=== PATIENT | male | born 1950 | race Two or more races ===

== ENCOUNTER 2020-03-03 01:18 | Emergency (ER) | payer MEDICARE ==
[~2020-03-03] VITALS: Ht 172.7 cm; Wt 82.6 kg
--- OUTSIDE RECORDS SUMMARY | 2020-03-03 01:21 | XMS REPORT ---
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 s Mild nonproliferative diabetic retinopathy of both eyes Disease Active 2015-05-21 00:00:00 [facility] 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 Disease Active 2015-05-21 00:00:00 [facility] Iron deficiency anemia- pt postponed colonoscopy - fea r of cancer Iron deficiency anemia- pt postponed colonoscopy - fear of cancer Disease Active 2014-11-29 00:00:00 [facility] Anemia, unspecified Anemia, unspecified Disease Active 2014-11-21 00:00 :00 [facility] Tooth decay Tooth decay Disease Active 2012-10-27 00:00:00 [facility] Periodontitis Periodontitis Disease Active 2012-10-27 00:00:00 [facility] Diabetes mellitus Diabetes mellitus Disease Active 2011-05-12 00:00:00 [facility] Hypertension Hypertension Disease Active 2010-11-17 00:00:00 [facility] Hyperlipidemia Hyperlipidemia Disease Active 2010-09-01 00:00:00 [facility] Atrial fibrillation Atrial fibrillation Disease Active 2007-05-04 00:00 :00 [facility] VITAMIN D DEFICIENCY 02/06 VITAMIN D DEFICIENCY 02/06 Disease Ac tive 2007-02-14 00:00:00 [facility] Chronic Low Back Pain Chronic Low Back Pain Disease Active 200 04-05-24 00:00:00 [facility] GERD GERD Disease Active 2006-07-01 00:00:00 [facility] Obesity Obesity Disease Active [facility] Pacemaker Pacemaker Disease Active [facility] CAD (coronary artery disease) CAD (coronary artery disease) Disease Active Overview: S/P PACEMAKER , [place] TH 2001; stress uwzo=7550; ECHO=01/08-EF= 60-64%; PACEMAKER=08/16/07, 02/14/08-RTC 6 mos [facility] Osteoarthritis Osteoarthritis Disease Active [facility] Erectile dysfunction Erectile dysfunction Disease Active [facility] Heart block Heart block Disease Active [facility] Allergies, Adverse Reactions, Alerts Allergy Name Allergy Type Status Severity Reaction(s) Onset Date Inacti ve Date Treating Clinician Comments Source ALMONDS DA Active U 2002-07-08 00:00:00 [facility] No Known Contrast Allergies DA Active U 2002-07-08 00:00: 00 [facility] No Known Drug Allergies DA Active U 2002-07-08 00:00:00 [facility] PEACHES DA Active U 2002-07-08 00:00:00 [facility] Family History Family Member Diagnosis Comments Start Date Stop Date Source Natural brother Arthritis [facility] Natural brother Diabetes [facility] Natural mother Diabetes [facility] Natural mother Heart [facility] Social History Social Habit Start Date Stop Date Quantity Comments Source Sex Assigned At [facility] Alcohol intake 2016-07-27 00:00:00 2016-07-27 00:00:00 [facility] Smoking Status Start Date Stop Date Source Never smoker [facility] Medications Ordered Medication Name Filled Medication Name Start Date Stop Da te Current Medication? Ordering Clinician Indication Dosage Frequency Signature (SIG) Comments Components Source metoprolol tartrate (LOPRESSOR) 50 mg tablet 2017-09-10 00:0 0:00 Yes Essential hypertension TAKE 1 & 1/2 TABL ET BY MOUTH 2 TIMES DAILY PLEASE SEE PCP FOR FURTHER REFILLS. [facility] tamsulosin (FLOMAX) 0.4 mg extended release capsule 04-13 00:00:00 Yes Benign prostatic hyperplasia, presence o f lower urinary tract symptoms unspecified TAKE 2 CAPSULES BY MOUTH DAILY FOR PROSTATE. [facility] omeprazole (PRILOSEC) 20 mg delayed release capsule 03-07 00:00:00 Yes Gastroesophageal reflux disease without esophagitis TAKE ONE CAPSULE BY MOUTH EVERY DAY [facility] XARELTO 20 mg tablet 2016-12-07 00:00:00 Yes Atrial fibrillation, unspecified type TAKE 1 TABLET BY TABBY TH EVERYDAY (WITH DINNER),INS ALLOWS 30 DAY SUPPLY [facility] finasteride (PROSCAR) 5 mg tablet 2016-12-07 00:00:00 Yes Benign prostatic hyperplasia, presence of lower urinary tract symptoms unspecified, unspecified morphology 5mg QD Take 1 tablet by tabby th daily Please see PCP for further refills. [facility] pravastatin (PRAVACHOL) 20 mg tablet 2016-12-07 00:00:00 Yes Hyperlipidemia, unspecified hyperlipidemia type 20mg Take 1 tablet by mouth at bedtime nightly Please see PCP for further refills. [facility] metFORMIN (GLUCOPHAGE) 500 mg tablet 2016-12-07 00:00:00 Yes Type 2 diabetes mellitus without complication, unspecified [facility] insulin use status 1000mg QD Take 2 tablets by mo uth daily (with breakfast) Please see PCP for further refills. [facility] fenofibrate nanocrystallized (TRICOR) 48 mg tablet 2016-09 00:00:00 Yes Other hyperlipidemia 48mg QD Take 1 tabl et by mouth daily Please see PCP for further refills. [facility] oxybutynin (DITROPAN) 5 mg tablet 2016-07-27 00:00:00 Yes Postinfective stricture of bulbous urethra 5mg Q.5D Take 1 tablet by mouth 2 time s daily. [facility] lancets 2016-07-22 00:00:00 Yes Type 2 diabetes mellitus without complication, unspecified director long term care insulin use status by MISCELLANEOUS route 3 times daily USE TO CHECK BLOOD SUGARS. [facility] blood glucose (TRUE METRIX GLUCOSE TEST STRIP) test strips 2016-06-10 00:00:00 Yes Type 2 diabetes mellitus without complication, unspecified director long term care insulin use status 3 times daily to test blood sugar. [facility] MULTIVITAMIN OR 2016-06-09 14:32:38 Yes Take by mouth. [facility] blood glucose meter (TRUE METRIX GLUCOSE METER) 2016-06-09 0 0:00:00 Yes Type 2 diabetes mellitus without complication, unspecified m[facility] insulin use status Use as directed.. [facility] acetaminophen-codeine (TYLENOL/CODEINE #3) 300-30 mg per tab let 2016-06-09 00:00:00 Yes Postinfective stricture of bulbous ureth ra 1{tbl} Take 1 tablet by mouth every 4 hours as needed for Pain. [facility] insulin glargine (LANTUS) 100 unit/mL injection 2016-03-11 0 0:00:00 Yes Type 2 diabetes mellitus without complication 55U QD Inject 55 Units under the skin daily. [facility] methocarbamol (ROBAXIN-750) 750 mg tablet 2016-03-11 00:00:0 0 Yes Chronic midline low back pain without sciatica 750mg T abdifatah 1 tablet by mouth 3 times daily as needed for Pain. [facility] blood glucose (TRUETEST TEST STRIPS) test strips 2015-12-26 00:00:00 Yes Type 2 diabetes mellitus without complication Q.5D 2 times daily to test blood sugar. [facility] blood glucose meter 2015-12-26 00:00:00 Yes Type 2 diabetes mellitus without complication True test Glucomete r. Use as directed twice daily to check blood sugar. [facility] INSULIN SYRINGE 1mL 30GX5/16" syringe-needle 2015-11-27 00:0 0:00 Yes Type 2 diabetes mellitus without complication Use to inject medication Use for insulin daily. Use a new syringe each time. [facility] polyethylene glycol (GOLYTELY) 236-22.74-6.74 -5.86 gram ora l solution 2015-04-22 00:00:00 Yes Iron deficiency anemia Add lukewarm drinking water to the fill satnam (4 liters) and shake. Drink as directed by your doctor.. [facility] fluocinonide (LIDEX) 0.05 % external solution 2014-12-09 00: 00:00 Yes Dry scalp Q.5D Apply to affected area 2 times daily. [facility] ketoconazole (NIZORAL) 2 % shampoo 2014-12-09 00:00:00 Yes Dry scalp Apply on scalp leave for 5-10 min and rinse. Use three times a week.. [facility] ferrous sulfate (IRON, FERROUS SULFATE,) 325 mg (65 mg iron) tablet 2014-06-18 00:00:00 Yes Iron deficiency anemia, unspecified 325m g QD Take 1 tablet by mouth daily (with breakfast). [facility] Immunizations Ordered Immunization Name Filled Immunization Name Date Status Comments Source Tropicamide 0.5% Eye-Shari 15ml 2015-07-24 00:00:00 Complete d [facility] Influenza Vaccine 2015-07-10 00:00:00 Completed [facility] Influenza Vaccine 2013-08-14 00:00:00 Completed [facility] Tdap Tetanus, diphtheria, acellular pertussis Vaccine 2013-03-29 00:00:00 Completed [facility] Influenza Vaccine 2012-07-03 00:00:00 Completed [facility] Influenza Vaccine 2011-09-29 00:00:00 Completed [facility] Influenza Vaccine 2010-07-20 00:00:00 Completed [facility] Influenza Vaccine 2009-07-09 00:00:00 Completed [facility] Influenza Vaccine 2008-09-18 00:00:00 Completed [facility] PPV 23 Pneumococcal Polysaccaride 2004-10-09 00:00:00 Comp leted [facility] Procedures This patient has no known procedures. Plan of Care Planned Activity Planned Date Details Comments Source [facility] Scheduled Test 2017-05-19 00:00:00 CORONARY ARTERY DI SEASE AGE 18 AND UP [code = CORONARY ARTERY DISEASE AGE 18 AND UP] [facility] Scheduled Test 2017-05-19 00:00:00 DM HGBA1C (Yearly) [code = DM HGBA1C (Yearly)] [facility] Scheduled Test 2017-01-02 00:00:00 DM Retinal Exam (Y early) [code = DM Retinal Exam (Yearly)] [facility] Scheduled Test 2016 00:00:00 IMM Pneumococcal A ge 65 and Up [code = IMM Pneumococcal Age 65 and Up] [facility] Scheduled Test 2016-07-24 00:00:00 DM Microalbumin Ur ine Scrn (Yearly) [code = DM Microalbumin Urine Scrn (Yearly)] [facility] Scheduled Test 2016-04-15 00:00:00 DM Foot Exam (Year ly) [code = DM Foot Exam (Yearly)] [facility] Scheduled Test 2006-12-14 00:00:00 Colorectal Cancer Scrn Annual (FIT/FOBT) Age 50 to 75 [code = Colorectal Cancer Scrn Annual (FIT/FOBT) Age 50 to 75] [facility] Results Test Description Test Time Test Comments Results Result Comments Source - US ABDOMEN COMPLETE 2019-09-28 09:01:00 Name : KOBI MURPHY [facility] : 1950 Age/S: 69 / M [address] [facility] Unit #: [id number] Loc: ROSALIO Prakash [address] Phys: Elio Rai MD Acct: [id number] Dis Date: Status: REG CLI PHONE #: [phone] Exam Date: 09/28/2019 0840 FAX #: [phone] Reason: 787.3,R14.0,V65.3,E66.3 EXAMS: CPT CODE: [id number] US ABDOMEN COMPLETE 24453 REASON FOR EXAM: 787.3,R14.0,V65.3,E66.3 EXAM ORDER DATE: 09/28/2019 7:57 AM Attending M.D.: Elio Rai MD PROCEDURE: - US ABDOMEN COMPLETE Technique: Grayscale and color Doppler images of the abdomen. Comparison study: No relevant priors FINDINGS: Aorta and IVC: Patent and grossly normal in caliber. Liver: Size: 15.0 cm craniocaudally Parenchyma and contour: Smooth contour. Normal echogenicity. Cysts and/or masses: None. Intrahepatic bile ducts: No intrahepatic biliary ductal dilation Common bile duct: 2.3 mm in diameter. No echogenic filling defects in visualized duct. Gallbladder: Stones/sludge: No intraluminal stones or sludge. Wall: 2.6 mm in thickness. No discontinuity. No polyps. No pericholecystic fluid. No hyperemia. Sonographic Riggins's sign: Negative Portal vein: Portal vein caliber is within normal limits. Portal vein is patent with hepatopetal flow. Pancreas: Incompletely visualized. However the visualized portions are grossly within normal limits. Right kidney: parenchyma echogenicity: Normal echogenicity size: 12.1 x 5.4 x 5.3 cm stones: none cysts/masses: none hydronephrosis: none PAGE 1 Signed Report (CONTINUED) Name: KOBI MURPHY [facility] : 1950 Age/S: 69 / M [address] [facility] Unit #: [id number] Loc: ROSALIO Prakash [address] Phys: Elio Rai MD Acct: [id number] Dis Date: Status: REG CLI PHONE #: [phone] Exam Date: 0840 FAX #: [phone] Reason: 787.3,R14.0,V65.3,E66.3 EXAMS: CPT CODE: [id number] US ABDOMEN COMPLETE [id number] <Continued> Left kidney: parenchyma echogenicity: Normal echogenicity size: 11.7 x 6.2 x 5.6 cm stones: none cysts/masses: none hydronephrosis: none Spleen: size: 12.5 x 4.3 x 5.1 cm cysts/masses: Parenchyma is sonographically unremarkable. Ascites/pleural effusions: None IMPRESSION: Sonographically unremarkable abdomen. Location: [facility] at 0901 Reported and signed by: Dex Ortega MD CC: Elio Rai MD; Alex Morales Technologist: PATRICK RITTER RT(R),JAKI Trnscb Date/Time: 09/28/2019 (900) [email or web address] Orig Print D/T: S: 09/28/2019 (0904) Probe: PAGE 2 Signed Report
--- OUTSIDE RECORDS SUMMARY | 2020-03-03 01:21 | XMS REPORT | Clinical Summary ---
Author Author [facility] Organization [facility] ict Address Unknown Phone Unavailable Care Team Providers Care Trauma Registrar Name Role Phone PCP Unavailable Allergies Comments Active Allergy Reactions Severity Noted Date No Known Drug Allergies 03/21/2014 Medications End Date Status Medication Sig Dispensed Refills Start Date Active ferrous sulfate (IRON, Take 1 tablet 100 tablet 0 0 FERROUS SULFATE,) 325 mg by mouth 4 (65 mg iron) daily (with tabletIndications: Iron breakfast). deficiency anemia, unspecified Active fluocinonide (LIDEX) 0.05 Apply to 60 mL 3 % external affected area 5 solutionIndications: Dry 2 times scalp daily. Active ketoconazole (NIZORAL) 2 Apply on 120 mL 5 0 % shampooIndications: Dry scalp leave 5 scalp for 5-10 min and rinse. Use three times a week.. Active polyethylene glycol Add lukewarm 4000 mL 0 04/22 (GOLYTELY) 236-22.74-6.74 drinking 5 -5.86 gram oral water to the solutionIndications: Iron fill satnam (4 deficiency anemia liters) and shake. Drink as directed by your doctor.. Active MULTIVITAMIN OR Take by 0 mouth. Active INSULIN SYRINGE 1mL Use to inject 30 Each 11/04 30GX5/16" medication 6 syringe-needleIndications Use for : Type 2 diabetes insulin mellitus without daily. Use a complication new syringe each time. Active blood glucose (TRUETEST 2 times daily 100 Each TEST STRIPS) test to test blood 6 stripsIndications: Type 2 sugar. diabetes mellitus without complication Active blood glucose True test 1 Kit 0 meterIndications: Type 2 Glucometer. 6 diabetes mellitus without Use as complication directed twice daily to check blood sugar. Active insulin glargine (LANTUS) Inject 55 50 mL 1 100 unit/mL Units under 6 injectionIndications: the skin Type 2 diabetes mellitus daily. without complication Active methocarbamol Take 1 tablet 60 tablet 1 (ROBAXIN-750) 750 mg by mouth 3 6 tabletIndications: times daily Chronic midline low back as needed for pain without sciatica Pain. Active blood glucose meter (TRUE Use as 1 Kit 0 METRIX GLUCOSE directed.. 6 METER)Indications: Type 2 diabetes mellitus without complication, unspecified casework supervisor insulin use status Active acetaminophen-codeine Take 1 tablet 30 tablet 0 (TYLENOL/CODEINE #3) by mouth 6 300-30 mg per every 4 hours tabletIndications: as needed for Postinfective stricture Pain. of bulbous urethra Active blood glucose (TRUE 3 times daily 100 Each 3 METRIX GLUCOSE TEST to test blood 6 STRIP) test sugar. stripsIndications: Type 2 diabetes mellitus without complication, unspecified skilled nursing insulin use status Active lancetsIndications: Type by 100 Each 5 1 2 diabetes mellitus MISCELLANEOUS 6 without complication, route 3 times unspecified casework supervisor daily USE TO insulin use status CHECK BLOOD SUGARS. Active oxybutynin (DITROPAN) 5 Take 1 tablet 60 tablet 6 mg tabletIndications: by mouth 2 6 Postinfective stricture times daily. of bulbous urethra Active fenofibrate Take 1 tablet 30 tablet 0 nanocrystallized (TRICOR) by mouth 6 48 mg tabletIndications: daily Please Other hyperlipidemia see PCP for further refills. Active XARELTO 20 mg TAKE 1 TABLET 30 tablet 2 tabletIndications: Atrial BY MOUTH 7 fibrillation, unspecified EVERYDAY type (WITH DINNER),INS ALLOWS 30 DAY SUPPLY Active finasteride (PROSCAR) 5 Take 1 tablet 30 tablet 0 mg tabletIndications: by mouth 7 Benign prostatic daily Please hyperplasia, presence of see PCP for lower urinary tract further symptoms unspecified, refills. unspecified morphology Active pravastatin (PRAVACHOL) Take 1 tablet 30 tablet 0 20 mg tabletIndications: by mouth at 7 Hyperlipidemia, bedtime unspecified nightly hyperlipidemia type Please see PCP for further refills. Active metFORMIN (GLUCOPHAGE) Take 2 120 tablet 0 500 mg tabletIndications: tablets by 7 Type 2 diabetes mellitus mouth daily without complication, (with unspecified skilled nursing breakfast) insulin use status Please see PCP for further refills. Active omeprazole (PRILOSEC) 20 TAKE ONE 90 capsule 1 0 mg delayed release CAPSULE BY 7 capsuleIndications: MOUTH EVERY Gastroesophageal reflux DAY disease without esophagitis Active tamsulosin (FLOMAX) 0.4 TAKE 2 60 capsule 3 mg extended release CAPSULES BY 7 capsuleIndications: MOUTH DAILY Benign prostatic FOR PROSTATE. hyperplasia, presence of lower urinary tract symptoms unspecified Active metoprolol tartrate TAKE 1 & 1/2 90 tablet 0 09/10 (LOPRESSOR) 50 mg TABLET BY 7 tabletIndications: MOUTH 2 TIMES Essential hypertension DAILY PLEASE SEE PCP FOR FURTHER REFILLS. Active Problems Problem Noted Date Mild nonproliferative diabetic retinopathy of both ey es 05/21/2015 Other and combined forms of senile cataract 05/21/20 15 Iron deficiency anemia- pt postponed colonoscopy - fe ar of cancer 11/29/2014 Anemia, unspecified 11/21/2014 Tooth decay 10/27/2012 Periodontitis 10/27/2012 Diabetes mellitus 05/12/2011 Hypertension 11/17/2010 Hyperlipidemia 09/01/2010 Atrial fibrillation 05/04/2007 VITAMIN D DEFICIENCY 02/0602/14/2007 Chronic Low Back Pain 01/24/2007 GERD 07/01/2006 Obesity Pacemaker CAD (coronary artery disease) Overview: S/P PACEMAKER , CATH 2001; stress test= 2001; ECHO=01/08-EF= 60-64%; PACEMAKER=08/16/07, 02/14/08-RTC 6 mos Osteoarthritis Erectile dysfunction Heart block Immunizations Name Administration Dates Next Due Influenza Vaccine 07/10/2015, 08/14/2013, 10/2011, 09/29/2011, 07/20/2010, 07/09/2009, 09/18/2008 PPV 23 Pneumococcal 10/09/2004 Polysaccaride Tdap Tetanus, diphtheria, 03/29/2013 acellular pertussis Vaccine Tropicamide 0.5% Eye-Shari 07/24/2015 15ml Family History Medical History Relation Name Comments Arthritis Brother Diabetes Brother Diabetes Mother Heart Mother Relation Name Status Comments Brother Father stroke , diabetes c omplications (Age 50) Mother Alive Social History Date Tobacco Use Types Packs/Day Years Used Never Smoker Smokeless Tobacco: Never Used Tobacco Cessation: Counseling Given: No Drinks/Week oz/Week Comments Alcohol Use 0 Standard drinks or equivalent 0.0 No Sex Assigned at Date Recorded Not on file Industry Job Start Date Occupation Not on file Not on file Not on file Travel End Travel History Travel Start No recent travel history available. Last Filed Vital Signs Not on file Plan of Treatment Health Maintenance Due Date Last Done Comments Colorectal Cancer Scrn 12/14/2006 12/14/2005, , 12/12/2005, Annual (FIT/FOBT) Age 50 Additional history exists to 75 DM Foot Exam (Yearly) 04/15/2016 04/15/2015, 11/03 DM Microalbumin Urine 07/24/2016 07/24/2015, 0505/2014, 03/29/2013, Scrn (Yearly) Additional history exists IMM Pneumococcal Age 65 2016 and Up DM Retinal Exam (Yearly) 01/02/2017 01/03/2016, 1 , 05/21/2015, Additional history exists CORONARY ARTERY DISEASE 05/19/2017 05/19/2016, , 08/16/2014, AGE 18 AND UP Additional history exists DM HGBA1C (Yearly) 05/19/2017 05/19/2016, 016, 07/24/2015, Additional history exists Results Not on fileafter 03/03/2019 Insurance Type Payer Benefit Subscriber ID Effective Phone Address Plan / Dates Group [employer] [id number] [phone] [address] [facility] [address] [place] [address]
--- NOTE | 2020-03-03 01:26 | Emergency Department Note ---
History of Present Illnes History of Present Illness History of Present Illness This is a 69 year old Other male with diarrheal illness of 2 days duration with noted low Blood sugar of 66 . Historian: Patient, Family Member () Arrival Mode: Car It Investment/Portfolio Manager Required: No Onset (how long ago): day(s) (2) Radiation: abdomen Severity: moderate Onset quality: gradual Duration (how long): day(s) (2) Timing of current episode: constant Progression: unchanged Chronicity: new Relieving factors: none Exacerbating factors: none Associated symptoms: fever/chills Treatments prior to arrival: other (bentyl) Past Medical/Family History Physician Review I have reviewed the patient's past medical and family history. Any updates have been documented here. Past Medical History Recent Fever: No Clinical Suspicion of Infectio: Yes New/Unexplained Change in Ment: No Past Medical History: None Past Surgical History: Pacer/AICD Social History Smoking Cessation: Never Smoker Alcohol Use: None Any Illegal Drug Use: No Review of Systems Review of Systems Constitutional: fever, malaise EENTM: no symptoms Cardiovascular: no symptoms Respiratory: no symptoms Gastrointestinal: abdominal pain, diarrhea; nausea, vomiting Genitourinary: no symptoms Musculoskeletal: no symptoms Neurological: weakness Psychological: no symptoms Endocrine: no symptoms Hematological/Lymphatic: no symptoms Review of other systems All other systems reviewed and negative. Physical Exam Related Data Allergies: Coded Allergies: No Known Allergies (Unverified , 03/03/20) Physical Exam CONSTITUTIONAL Constitutional: well-developed, well-nourished HENT HENT: normocephalic, atraumatic, oropharynx clear/moist, nose normal HENT L/R: left ext ear normal, right ext ear normal EYES Eyes: PERRL, conjunctivae normal NECK Neck: ROM normal PULMONARY Pulmonary: effort normal, breath sounds normal CARDIOVASCULAR Cardiovascular: regular rhythm, heart sounds normal, capillary refill normal, normal rate GASTROINTESTINAL Abdominal: soft; nontender; bowel sounds normal, tender (epigsatric) GENITOURINARY Genitourinary: exam deferred SKIN Skin: warm, dry MUSCULOSKELETAL Musculoskeletal: ROM normal NEUROLOGICAL Neurological: alert, oriented x 3, no gross motor or sensory deficits PSYCHOLOGICAL Psychological: mood/affect normal, judgement normal Results Laboratory Lab results reviewed: Yes Laboratory comments CBC : WBC ELEVATED 15.6 CMP : GLUC ELEVATED 223 TROPONINS: NEG UA : NEG Imaging Imaging results reviewed: Yes Impressions [place] [id number] Patient Name: FRANCOISE VUONG MR #: [id number] : 1950 Age/Sex: 69/M Req #: [id number] Adm Physician: Ordered by: KEVEN PAGAN DO Report #: [id number] Location: ER Room/Bed: ___ Procedure: CT/CT ABDOMEN/PELVIS W Exam Date: 03/03/20 Exam Time: 0345 REPORT STATUS: Signed EXAM: CT Abdomen and Pelvis WITH contrast INDICATION: Diarrhea, upset stomach COMPARISON: None. TECHNIQUE: Abdomen and pelvis were scanned utilizing a multidetector helical scanner from the lung base to the pubic symphysis after administration of IV contrast. Coronal and sagittal reformations were obtained. Routine protocol was performed. Scan was performed when during portal venous phase. IV CONTRAST: 100 mL of Isovue 370 ORAL CONTRAST: None COMPLICATIONS: None RADIATION DOSE: Total DLP: 448 mGy*cm Estimated effective dose: (DLP x 0.015 x size factor) mSv CTDIvol has been reviewed. It is below the limits set by the Radiation Protocol Committee (RPC). Dose modulation, iterative reconstruction, and/or weight based adjustment of the mA/kV was utilized to reduce the radiation dose to as low as reasonably achievable. FINDINGS: LINES and TUBES: None. LOWER THORAX: Partially visualized cardiac device leads in the right atrium and right ventricle. Coronary artery calcific atherosclerosis. HEPATOBILIARY: No focal hepatic lesions. No biliary ductal dilation. GALLBLADDER: No radio-opaque stones or sludge. No wall thickening. SPLEEN: No splenomegaly. PANCREAS: No focal masses or ductal dilatation. ADRENALS: No adrenal nodules KIDNEYS/URETERS: Kidneys enhance symmetrically. No hydronephrosis. No cystic or solid mass lesions. No stones. GI TRACT: The stomach is distended with fluid and air. Fluid-filled loops of small bowel. Liquid stool in the colon. Mucosal hyperenhancement in the stomach and mural hyperenhancement is some of the loops of small bowel. No pathologic dilation or evidence of transition point. No focal masslike wall thickening. Appendix is normal. PELVIC ORGANS/BLADDER: Unremarkable. LYMPH NODES: No lymphadenopathy. VESSELS: Scattered mild arterial vascular calcifications. PERITONEUM / RETROPERITONEUM: No free air or fluid. BONES: Unremarkable. SOFT TISSUES: Unremarkable. IMPRESSION: Findings compatible with gastroenteritis and diarrhea. Air and fluid gastric distention. Coronary artery calcific atherosclerosis. Signed by: Jose Enrique Mcrae DO on 03/03/2020 4:51 AM Dictated By: JOSE ENRIQUE MCRAE DO 0 Transcribed By: EVE on 03/03/20450 COPY TO: KEVEN PAGAN DO~ Procedures 12 Lead ECG Interpretation It Investment/Portfolio Manager: Interpreted by ED physician Date: Mar 03, 2020 Time: 01:42 Prior JEWELRY DESIGNER tracings: reviewed Rate: tachycardia BPM: 116 Pacin% capture Clinical Impression: non-specific ECG (Pacer spikes with rate of 116) Assessment & Plan Assessment & Plan Final Impression: (1) DIARRHEA, UNSPECIFIED Assessment & Plan cbc, cmp , CTS abd/pelvis ordered. EKG reviewed with patient. Rx Lomotil Last Vital Signs Date Time Temp Pulse Resp B/P (MAP) Pulse Ox O2 Delivery O2 Flow Rate FiO2 03/03/20 05:49 100 19 99 03/03/20 04:30 134/63 03/03/20 03:09 98.2 KEVEN PAGAN DO Mar 03, 2020 01:26
[2020-03-03] MEDS ORDERED: SODIUM CHLORIDE 0.9% 1000ML 1,000 ML IV STA (01:27)
[2020-03-03 01:51] LABS: BASOPHILS # (AUTO) 0.1 (0.0-0.1); BASOPHILS % 0.3 % (0.0-1.0); EOSINOPHILS % 0.1 % (0.0-6.0); HEMATOCRIT 42.8 % (38.2-49.6); HEMOGLOBIN 14.8 g/dL (14.0-18.0); LYMPHOCYTES # (AUTO) 1.1 (1.0-3.2); LYMPHOCYTES % 7.3 % (18.0-39.1); MEAN CORPUSCULAR HEMOGLOBIN 30.7 pg (28-32); MEAN CORPUSCULAR HGB CONC 34.6 g/dL (31-35); MEAN CORPUSCULAR VOLUME 88.8 fL (81-99); MONOCYTES # (AUTO) 0.4 (0.2-0.8); MONOCYTES % 2.8 % (4.4-11.3); NEUTROPHILS # (AUTO) 13.6 (2.1-6.9); PLATELET COUNT 222 x10e3/uL (140-360); RED BLOOD COUNT 4.82 x10e6/uL (4.3-5.7); RED CELL DISTRIBUTION WIDTH 13.5 % (11.7-14.4)
[2020-03-03 02:09] LABS: CLARITY,URINE CLEAR (CLEAR); COLOR,URINE YELLOW (YELLOW); LEUKOCYTE ESTERASE ,URINE NEGATIVE (NEGATIVE); NITRITE,URINE NEGATIVE (NEGATIVE); PROTEIN,URINE DIPSTICK NEGATIVE (NEGATIVE)
[2020-03-03 02:10] LABS: BILIRUBIN,URINE NEGATIVE (NEGATIVE); KETONES,URINE NEGATIVE (NEGATIVE); URINE UROBILINOGEN 0.2 mg/dL (0.2 - 1)
[2020-03-03 02:12] LABS: ALANINE AMINOTRANSFERASE 24 IU/L (0-55); ALBUMIN 4.2 g/dL (3.5-5.0); ALBUMIN/GLOBULIN RATIO 1.1 (0.8-2.0); ALKALINE PHOSPHATASE 93 IU/L (40-150); ANION GAP 15.8 mmol/L (8-16); BLOOD UREA NITROGEN 11 mg/dL (7-26); BUN/CREATININE RATIO 11 (6-25); CALCIUM 9.6 mg/dL (8.4-10.2); CARBON DIOXIDE 20 mmol/L (22-29); CHLORIDE 104 mmol/L (98-107); CREATINE KINASE 56 IU/L (30-200); CREATININE, SERUM 0.97 mg/dL (0.72-1.25); EST GLOMERULAR FILTRATION RATE > 60 ML/MIN (60-); GLUCOSE 223 mg/dL (74-118); LIPASE 20 U/L (8-78); POTASSIUM 3.8 mmol/L (3.5-5.1); SODIUM 136 mmol/L (136-145)
[2020-03-03 02:14] LABS: BACTERIA,URINE FEW /HPF; EPITHELIAL CELLS,URINE FEW /LPF; RBC,URINE 0-5 /HPF (0-5); WBC,URINE (MAN) 0-5 /HPF (0-5)
[2020-03-03] MEDS ORDERED: DIATRIZOATE MEGL/DIATRIZOA SOD 30 ML BTL PO ONE (02:20)
[2020-03-03] MEDS ORDERED: IOPAMIDOL 370 MG/ML 200 ML INFUS..BTL INJ ONE (02:36)
[2020-03-03] MEDS ORDERED: SODIUM CHLORIDE 0.9% 50ML 50 ML ONE (02:36)
--- NOTE | 2020-03-03 04:55 | Diagnostic Imaging Report ---
EXAM: CT Abdomen and Pelvis WITH contrast INDICATION: Diarrhea, upset stomach COMPARISON: None. TECHNIQUE: Abdomen and pelvis were scanned utilizing a multidetector helical scanner from the lung base to the pubic symphysis after administration of IV contrast. Coronal and sagittal reformations were obtained. Routine protocol was performed. Scan was performed when during portal venous phase. IV CONTRAST: 100 mL of Isovue 370 ORAL CONTRAST: None COMPLICATIONS: None RADIATION DOSE: Total DLP: 448 mGy*cm Estimated effective dose: (DLP x 0.015 x size factor) mSv CTDIvol has been reviewed. It is below the limits set by the Radiation Protocol Committee (RPC). Dose modulation, iterative reconstruction, and/or weight based adjustment of the mA/kV was utilized to reduce the radiation dose to as low as reasonably achievable. FINDINGS: LINES and TUBES: None. LOWER THORAX: Partially visualized cardiac device leads in the right atrium and right ventricle. Coronary artery calcific atherosclerosis. HEPATOBILIARY: No focal hepatic lesions. No biliary ductal dilation. GALLBLADDER: No radio-opaque stones or sludge. No wall thickening. SPLEEN: No splenomegaly. PANCREAS: No focal masses or ductal dilatation. ADRENALS: No adrenal nodules KIDNEYS/URETERS: Kidneys enhance symmetrically. No hydronephrosis. No cystic or solid mass lesions. No stones. GI TRACT: The stomach is distended with fluid and air. Fluid-filled loops of small bowel. Liquid stool in the colon. Mucosal hyperenhancement in the stomach and mural hyperenhancement is some of the loops of small bowel. No pathologic dilation or evidence of transition point. No focal masslike wall thickening. Appendix is normal. PELVIC ORGANS/BLADDER: Unremarkable. LYMPH NODES: No lymphadenopathy. VESSELS: Scattered mild arterial vascular calcifications. PERITONEUM / RETROPERITONEUM: No free air or fluid. BONES: Unremarkable. SOFT TISSUES: Unremarkable. IMPRESSION: Findings compatible with gastroenteritis and diarrhea. Air and fluid gastric distention. Coronary artery calcific atherosclerosis. Signed by: Jose Enrique Mcrae DO on 03/03/2020 4:51 AM
[2020-03-03 05:49] VITALS: BP 134/63
--- NOTE | 2020-03-03 09:02 | Diagnostic Imaging Report ---
TECHNIQUE: Frontal view of the chest. INDICATION: 69-year-old man with upset stomach. COMPARISON: None. FINDINGS: LINES/TUBES/DEVICES: Implanted cardiac device projects over the left hemithorax with intact leads which project over the expected regions of the right atrium and right ventricle. LUNGS: The lungs are well inflated and clear. PLEURA: No pneumothorax or significant pleural effusion. HEART AND MEDIASTINUM: The cardiomediastinal silhouette is within normal limits. SOFT TISSUES AND BONES: Unremarkable. IMPRESSION: No acute cardiopulmonary abnormalities. Signed by: Annalise Melendez MD on 03/03/2020 8:58 AM
== END 2020-03-03 05:45 | disposition home or self-care (01) ==
LOC: ER 01:18
DX: R19.7 Diarrhea, unspecified (principal); E11.65 Type 2 diabetes mellitus with hyperglycemia; I10 Essential (primary) hypertension; E78.5 Hyperlipidemia, unspecified; K21.9 Gastro-esophageal reflux disease without esophagitis; Z95.810 Presence of automatic (implantable) cardiac defibrillator
CPT/HCPCS: 36415; 71045; 74177; 80053; 81001; 82550; 82553; 83690; 83880; 84484; 85025; 93005; 99284; J7030; Q9967